=== PATIENT | male | born 1945 | race Caucasian/White ===

== ENCOUNTER → 2017-05-09 | Outpatient (CLI) | payer OTHER ==
[~2017-05-09] MED LIST: BISA5TAB8 PO; HYDR-34 PO; LISI-556 PO; MAGN-47 PO
== END ==
LOC: CARD 12:26
PROVIDERS: ATTEND Nurse Practitioner
DX: R01.1 Cardiac murmur, unspecified (principal)
CPT/HCPCS: 93306

== ENCOUNTER 2017-06-16 22:50 | Emergency (ER) | payer MEDICARE, OTHER ==
[~2017-06-16] VITALS: Ht 172.7 cm; Wt 81.6 kg
[~2017-06-16 22:50] MED LIST changes: -BARIUM SUSPENSION 2.1% (VANILLA SILQ) 450 ML PO ONE; -CATHETER FLUSH 10 ML SYR IV PRN; -IOHEXOL 350 MG/ML 100 ML (OMNIPAQUE 350) VIAL IV ONE; -NS 100 ML (IVPB) BAG IV ONE
[2017-06-17] MEDS ORDERED: fentaNYL INJECTION 100 MCG/2 ML AMP IVP STA (01:06)
--- NOTE | 2017-06-17 01:06 | ED GU-Male ---
General Chief Complaint: -Male Stated Complaint: BLADDER SPASMS/DIFF URINATING Nursing Triage Note: Pt had CT and Bone scan today with contrast, unable to urinate and increasing pain, hx of prostate Cancer Source: patient, spouse Exam Limitations: no limitations History of Present Illness Time seen by provider: 01:02 Initial Comments Patient resistance to ER by private conveyance with his with a chief complaint of inability to PE. He has prostate cancer and today was getting a bone scan and CT scan of his pelvis. About 4:30 this afternoon he started having difficulty playing and was seeing a little pus and blood in his urine. After that he became more and more difficult where he cannot P. He is not on any current medications for his prostate at this time. He does take Hydrocort thiazide for blood pressure and Synthroid. He is seen by urology Dr. [place]. He is not having any fevers or chills but he is having a tremendous amount of pain and pressure from his suprapubic region. He is not having any recent instrumentation of his prostate urethra. He did have a biopsy of the prostate week or 2 ago. He has no allergies to medicines. Allergies and Home Medications Allergies Coded Allergies: amoxicillin (Verified Adverse Reaction, Mild, IRRITABLE AND RAISED BLOOD PRESSURE, 12/12/14) Home Medications Bisacodyl 5 Mg Tablet.dr, 5 MG PO DAILY PRN for CONSTIPATION, (Reported) Hydrocodone Bit/Acetaminophen 1 Ea Tablet, 1-2 EACH PO Q6H PRN for PAIN, #30 Prescribed by: THERON MAURER on 12/16/14 0922 Lisinopril 5 Mg Tablet, 5 MG PO DAILY PRN for HIGH BLOOD PRESSURE, (Reported) Magnesium Hydroxide 400 Mg/5 Ml Oral.susp, 1 TBS PO TID PRN for CONSTIPATION, ( Reported) Constitutional: No chills, No diaphoresis, No dizziness, No fever Respiratory: No cough, No short of breath Cardiovascular: No chest pain, No palpitations Gastrointestinal: abdominal pain (Suprapubic suprapubic), No constipation, No diarrhea, No nausea, No vomiting Genitourinary: denies burning, denies discharge, pain Skin: No pruritus, No rash Psychiatric/Neurological: Denies Numbness, Denies Paresthesia Past [id number]-Zfigrf Hx Patient Social History Alcohol Use: Rarely Uses Recreational Drug Use: No Smoking Status: Former Smoker Type Used: Cigarettes Recent Foreign Travel: No Contact w/Someone Who Travel: No Recent Infectious Disease Expo: No Recent Hopitalizations: No Seasonal Allergies Seasonal Allergies: No Surgeries HX Surgeries: Yes Surgeries: Tonsillectomy, Vasectomy Respiratory Hx Respiratory Disorders: No Cardiovascular Hx Cardiac Disorders: Yes Cardiac Disorders: Angina, Heart Murmur Neurological Hx Neurological Disorders: No Reproductive System Hx Reproductive Disorders: No Genitourinary Hx Genitourinary Disorders: No Genitourinary Disorders: Prostate Problems Gastrointestinal Hx Gastrointestinal Disorders: Yes Gastrointestinal Disorders: Abdominal Hernia Musculoskeletal Hx Musculoskeletal Disorders: Yes (KYPHOSIS) Endocrine Hx Endocrine Disorders: No Endocrine Disorders: Hypothyroidsim HEENT HX ENT Disorders: No Cancer Hx Cancer: No Cancer: Prostate Psychosocial Hx Psychiatric Problems: No Integumentary HX Skin/Integumentary Disorder: No Blood Transfusions Hx Blood Disorders: No Adverse Reaction to a Blood Tr: No Physical Exam Vital Signs Vital Sign - Last 12Hours 06/17/17 06/17/17 00:32 03:35 Temp 98.3 Pulse 97 Resp 24 B/P (MAP) 211/91 Pulse Ox 97 O2 Delivery Room Air Capillary Refill : Less Than 3 Seconds General Appearance: WD/WN, moderate distress HEENT: PERRL/EOMI, pharynx normal Cardiovascular: normal peripheral pulses, regular rate, rhythm Respiratory: no respiratory distress, no accessory muscle use Gastrointestinal: normal bowel sounds, soft, tenderness (suprapubic tenderness to palpation) Male: normal genitalia, No inguinal tenderness Back: no CVA tenderness, no vertebral tenderness Extremities: normal inspection, no pedal edema Neurologic/Psychiatric: alert, oriented x 3 Skin: normal color, warm/dry Progress/Results/Core Measures Results/Orders Lab Results Laboratory Tests Test 06/17/17 01:07 06/17/17 01:20 Range/Units White Blood Count 14.0 H 4.3-11.0 10^3/uL Red Blood Count 4.94 4.35-5.85 10^6/uL Hemoglobin 14.1 13.3-17.7 G/DL Hematocrit 41 40-54 % Mean Corpuscular Volume 84 80-99 FL Mean Corpuscular Hemoglobin 29 25-34 PG Mean Corpuscular Hemoglobin Concent 34 32-36 G/DL Red Cell Distribution Width 14.3 10.0-14.5 % Platelet Count 242 130-400 10^3/uL Mean Platelet Volume 12.5 H 7.4-10.4 FL Neutrophils (%) (Auto) 91 H 42-75 % Lymphocytes (%) (Auto) 4 L 12-44 % Monocytes (%) (Auto) 4 0-12 % Eosinophils (%) (Auto) 0 0-10 % Basophils (%) (Auto) 0 0-10 % Neutrophils # (Auto) 12.8 H 1.8-7.8 X 10^3 Lymphocytes # (Auto) 0.6 L 1.0-4.0 X 10^3 Monocytes # (Auto) 0.6 0.0-1.0 X 10^3 Eosinophils # (Auto) 0.0 0.0-0.3 10^3/uL Basophils # (Auto) 0.0 0.0-0.1 10^3/uL Neutrophils % (Manual) 86 % Lymphocytes % (Manual) 10 % Monocytes % (Manual) 4 % Eosinophils % (Manual) 0 % Basophils % (Manual) 0 % Band Neutrophils 0 % Blood Morphology Comment NORMAL Sodium Level 134 L 135-145 MMOL/L Potassium Level 3.6 3.6-5.0 MMOL/L Chloride Level 95 L 98-107 MMOL/L Carbon Dioxide Level 21 21-32 MMOL/L Anion Gap 18 H 5-14 MMOL/L Blood Urea Nitrogen 21 H 7-18 MG/DL Creatinine 1.06 0.60-1.30 MG/DL Estimat Glomerular Filtration Rate > 60 BUN/Creatinine Ratio 20 Glucose Level 127 H 70-105 MG/DL Calcium Level 9.6 8.5-10.1 MG/DL Magnesium Level 2.3 1.8-2.4 MG/DL Total Bilirubin 0.9 0.1-1.0 MG/DL Aspartate Amino Transf (AST/SGOT) 28 5-34 U/L Alanine Aminotransferase (ALT/SGPT) 28 0-55 U/L Alkaline Phosphatase 83 40-136 U/L Total Protein 8.3 H 6.4-8.2 GM/DL Albumin 4.9 H 3.2-4.5 GM/DL Urine Color YELLOW Urine Clarity CLEAR Urine pH 7 5-9 Urine Specific [place] 1.015 L 1.016-1.022 Urine Protein 2+ H NEGATIVE Urine Glucose (UA) NEGATIVE NEGATIVE Urine Ketones 1+ H NEGATIVE Urine Nitrite NEGATIVE NEGATIVE Urine Bilirubin NEGATIVE NEGATIVE Urine Urobilinogen NORMAL NORMAL MG/DL Urine Leukocyte Esterase NEGATIVE NEGATIVE Urine RBC (Auto) 4+ H NEGATIVE Urine RBC 5-10 H /HPF Urine WBC RARE /HPF Urine Squamous Epithelial Cells NONE /HPF Urine Crystals NONE /LPF Urine Bacteria NEGATIVE /HPF Urine Casts NONE /LPF Urine Mucus NEGATIVE /LPF Urine Culture Indicated NO My Orders Orders - [facility] Cbc With Automated Diff (06/17/17 01:06) Comprehensive Metabolic Panel (06/17/17 01:06) Magnesium (06/17/17 01:06) Ua Culture If Indicated (06/17/17 01:06) Fentanyl Injection (Sublimaze Injection (06/17/17 01:06) Wiggins Cath Insertion (06/17/17 01:08) Manual Differential (06/17/17 01:07) Vital Signs/I&O Vital Sign - Last 12Hours 06/17/17 06/17/17 00:32 03:35 Temp 98.3 97.3 Pulse 97 86 Resp 24 16 B/P (MAP) 211/91 Pulse Ox 97 O2 Delivery Room Air Room Air Blood Pressure Mean: 131 Departure Impression Impression: Primary Impression: Acute urinary retention Disposition: HOME, SELF-CARE Condition: Improved Departure-Patient Inst. Decision time for Depature: 03:20 Referrals: NO,LOCAL PHYSICIAN (PCP/Family) Primary Care Physician Patient Instructions: How to Care for Your Wiggins Catheter, Male Add. Discharge Instructions: He will need to keep the catheter in place until after you see your urologist. Drink plenty of fluids. Clean the site at least daily with just regular soap and water and a washcloth. He'll need to drain the bag before becomes full by opening the clamp on the bottom and allowing it to drain into a toilet or other container. If you start experiencing fevers or nausea or worsening pain or discharge from the penis then you should return to the ER immediately. Otherwise plan on seeing your urologist at the scheduled appointment this June 19. All discharge instructions reviewed with patient and/or family. Voiced understanding. Copy Copies To 1: CINDY BANG MD, TITUS J Jun 17, 2017 01:06
[2017-06-17 01:14] LABS: BASOPHILS % (AUTO) 0 % (0-10); EOSINOPHILS % (AUTO) 0 % (0-10); LYMPHOCYTES # (AUTO) 0.6 X 10^3 (1.0-4.0); LYMPHOCYTES % (AUTO) 4 % (12-44); MEAN CORPUSCULAR HEMOGLOBIN 29 PG (25-34); MEAN CORPUSCULAR HGB CONC 34 G/DL (32-36); MEAN CORPUSCULAR VOLUME 84 FL (80-99); MEAN PLATELET VOLUME 12.5 FL (7.4-10.4); MONOCYTES # (AUTO) 0.6 X 10^3 (0.0-1.0); MONOCYTES % (AUTO) 4 % (0-12); NEUTROPHILS # (AUTO) 12.8 X 10^3 (1.8-7.8); NEUTROPHILS % (AUTO) 91 % (42-75); PLATELET COUNT 242 10^3/uL (130-400); RED BLOOD COUNT 4.94 10^6/uL (4.35-5.85); RED CELL DISTRIBUTION WIDTH 14.3 % (10.0-14.5)
[2017-06-17 01:28] LABS: BAND NEUTROPHILS 0 %; BASOPHILS % (MANUAL) 0 %; EOSINOPHILS % (MANUAL) 0 %; LYMPHOCYTES % (MANUAL) 10 %
[2017-06-17 01:29] LABS: NEUTROPHILS % (MANUAL) 86 %
[2017-06-17 01:33] LABS: ALANINE AMINOTRANSFERASE 28 U/L (0-55); ALBUMIN 4.9 GM/DL (3.2-4.5); ANION GAP 18 MMOL/L (5-14); ASPARTATE AMINO TRANSFERASE 28 U/L (5-34); BILIRUBIN,TOTAL 0.9 MG/DL (0.1-1.0); BLOOD UREA NITROGEN 21 MG/DL (7-18); BUN/CREATININE RATIO 20; CALCIUM 9.6 MG/DL (8.5-10.1); CARBON DIOXIDE 21 MMOL/L (21-32); CHLORIDE 95 MMOL/L (98-107); CREATININE SERUM 1.06 MG/DL (0.60-1.30); GFR ESTIMATED > 60; GLUCOSE 127 MG/DL (70-105); MAGNESIUM 2.3 MG/DL (1.8-2.4); POTASSIUM 3.6 MMOL/L (3.6-5.0); SODIUM 134 MMOL/L (135-145); TOTAL PROTEIN 8.3 GM/DL (6.4-8.2)
[2017-06-17 01:34] LABS: BILIRUBIN,URINE NEGATIVE (NEGATIVE); KETONES,URINE 1+ (NEGATIVE); LEUKOCYTE ESTERASE ,URINE NEGATIVE (NEGATIVE); NITRITE,URINE NEGATIVE (NEGATIVE); PH,URINE 7 (5-9); PROTEIN,URINE 2+ (NEGATIVE); UROBILINOGEN,URINE NORMAL (NORMAL)
[2017-06-17 01:42] LABS: WBC,URINE RARE /HPF
[2017-06-17 03:35] VITALS: BP 165/75
== END 2017-06-17 03:35 | disposition home or self-care (01) ==
LOC: EDUNIT# 22:50 → ER 22:51
DX: R33.9 Retention of urine, unspecified (principal); E03.9 Hypothyroidism, unspecified; Z87.19 Personal history of other diseases of the digestive system; Z85.46 Personal history of malignant neoplasm of prostate; Z87.891 Personal history of nicotine dependence; Z98.52 Vasectomy status
CPT/HCPCS: 36415; 51702; 80053; 81000; 83735; 85007; 85027; 96374

== ENCOUNTER → 2017-06-16 | Outpatient (CLI) | payer OTHER ==
[~2017-06-16] MED LIST changes: +BARIUM SUSPENSION 2.1% (VANILLA SILQ) 450 ML PO ONE; +CATHETER FLUSH 10 ML SYR IV PRN; +IOHEXOL 350 MG/ML 100 ML (OMNIPAQUE 350) VIAL IV ONE; +NS 100 ML (IVPB) BAG IV ONE
[2017-06-16 11:52] LABS: BLOOD UREA NITROGEN 18 MG/DL (7-18); BUN/CREATININE RATIO 18; CREATININE SERUM 0.99 MG/DL (0.60-1.30); GFR ESTIMATED > 60
--- NOTE | 2017-06-16 15:22 | Diagnostic Imaging Report ---
EXAMINATION: Whole body bone scan. TECHNIQUE: After the intravenous administration of 27 mCi of Technetium 99m MDP, whole body delayed phase bone scan images were obtained with lateral views of the head and neck and the chest regions. INDICATION: Prostate cancer. FINDINGS: There is no significant tracer uptake in the thoracic or lumbar spine or the pelvis. Likely degenerative related activity in the cervical spine is seen. There are multiple bilateral foci of rib, increased tracer uptake in a linear fashion suggestive of a uptake secondary to rib fractures. There is mild degenerative related activity in the joints. The kidneys and bladder have expected excretion of tracer. IMPRESSION: Multiple foci of abnormal uptake in the ribs in a pattern suggestive of traumatic etiology. Dictated by: Dictated on workstation # [id number]
== END ==
LOC: RAD 10:53
PROVIDERS: ATTEND Urology
DX: C61 Malignant neoplasm of prostate (principal)
CPT/HCPCS: 36415; 78306; 82565; 84520